=== PATIENT | male | born 1995 | race Two or more races ===

== ENCOUNTER 2023-11-30 17:53 | Emergency (ER) | payer MEDICAID, OTHER ==
[~2023-11-30] VITALS: Ht 177.8 cm; Wt 86.3 kg
[2023-11-30 18:24] LABS: Urine Bacteria None Seen /hpf (None Seen)
[2023-11-30 19:04] LABS: Urine Blood Negative /uL (Negative); Urine Clarity Clear (Clear); Urine Color Light-Yellow (Yellow); Urine Mucus FEW (None Seen); Urine Protein, UAD Negative (Negative); Urine Specific Gravity 1.008 (1.001-1.035); Urine Urobilinogen Normal (Negative); Urine WBC 5 /hpf (0 - 3); Urine pH 5.5 (5.0-9.0)
[2023-11-30] MEDS ORDERED: DOXY-448 PO (22:53)
[2023-11-30] MEDS: cefTRIAXone SOD 1,000 MG VL IM ONE (23:51)
[2023-11-30] MEDS: AZITHROMYCIN 250 MG TAB PO ONE (23:52)
[2023-12-01 00:03] VITALS: BP 129/78; PULSE 78; RESP 18; TEMP 98.6; O2SAT 98
[2023-12-02 08:06] LABS: RPR Non Reactive (Non Reactive)
[2023-12-02 22:07] LABS: Chlamydia Trachomatis, NAA Negative (Negative); Neisseria gonorrhoeae, NAA Negative (Negative)
== END 2023-12-01 00:07 | disposition home or self-care (01) ==
LOC: ER 17:53
DX: N48.22 Cellulitis of corpus cavernosum and penis (principal); J45.909 Unspecified asthma, uncomplicated; F12.10 Cannabis abuse, uncomplicated
CPT/HCPCS: 81001; 86592; 87491; 87591; 96372; 99283; J0696